=== PATIENT | male | born 1940 | race Caucasian/White ===

== ENCOUNTER 2020-01-27 12:47 | Inpatient (IN) | payer MEDICARE, OTHER ==
--- NOTE | 2020-01-27 13:43 | EDM.PDOC ---
ED HPI GENERAL MEDICAL PROBLEM - General Chief Complaint: Respiratory Problem Stated Complaint: SOB Time Seen by Provider: 01/27/20 13:26 Source of Information: Reports: Patient History Limitations: Reports: No Limitations - History of Present Illness INITIAL COMMENTS - FREE TEXT/NARRATIVE: Patient presents with hypoxemia that started this morning at home. He lives with his daughter and has a home oxygen saturation monitor. He also has cough and fever that started 5-6 days ago. Two days ago he was tested for Covid which resulted positive yesterday. He has felt just a little dyspnea but not much. Denies chest pain. Highest temp was 100. Significant cough but not much production. Denies any asthma, COPD or other chronic lung problems. He has a pacemaker that was placed in February 2019. - Related Data Allergies Allergy/AdvReac Type Severity Reaction Status Date / Time adhesive tape Allergy Hives Verified 01/27/20 14:58 No Known Drug Allergies Allergy Cannot Verified 01/27/20 13:35 Remember Home Meds: Home Meds Allopurinol [Zyloprim] 200 mg PO QAM 01/27/20 [History] Cholecalciferol (Vitamin D3) [Vitamin D3] 400 unit PO QAM 01/27/20 [History] Fish Oil/[place]-3 Fatty Acids [Fish Oil 1,000 MG] 1 each PO QAM 01/27/20 [History] Methylsulfonylmethane [MSM] 500 mg PO QAM 01/27/20 [History] Metoprolol Tartrate [Lopressor] 50 mg PO QAM 01/27/20 [History] Multivitamins,Ther w-Minerals [Multivitamins with Minerals HP] 1 each PO QAM 01/27/20 [History] Naproxen Sod/Diphenhydramine [Aleve Pm Caplet] 1 tab PO BEDTIME 01/27/20 [History] Naproxen Sodium [Aleve] 220 mg PO QAM 01/27/20 [History] Niacin 500 mg PO BEDTIME 01/27/20 [History] Omeprazole 20 mg PO QAM 01/27/20 [History] Potassium Gluconate [Potassium] 99 mg PO QAM 01/27/20 [History] amLODIPine [Norvasc] 5 mg PO QAM 01/27/20 [History] lisinopriL [Lisinopril] 10 mg PO QAM 12/04/20 [History] ED ROS GENERAL - Review of Systems Review Of Systems: See Below Constitutional: Reports: Fever. Denies: Chills, Malaise, Weakness HEENT: Denies: Ear Pain, Throat Pain, Vision Change Respiratory: Reports: Shortness of Breath (mild), Cough Cardiovascular: Denies: Chest Pain, Lightheadedness, Syncope GI/Abdominal: Denies: Abdominal Pain, Diarrhea, Vomiting : Reports: No Symptoms Musculoskeletal: Denies: Neck Pain, Shoulder Pain, Arm Pain, Back Pain, Hand Pain Skin: Denies: Cyanosis, Jaundice, Mottled, Pallor, Diaphoresis Neurological: Denies: Confusion, Dizziness, Seizure, Syncope, Trouble Speaking, Difficulty Walking Psychiatric: Denies: Agitation, Anxiety, Confusion ED EXAM, GENERAL - Physical Exam Exam: See Below Exam Limited By: No Limitations General Appearance: Alert, WD/WN, No Apparent Distress Eye Exam: Bilateral Eye: EOMI, Normal Inspection, PERRL Ears: Normal External Exam, Hearing Grossly Normal Nose: Normal Inspection, No Blood Throat/Mouth: Normal Inspection, Normal Lips, Normal Voice, No Airway Compromise Head: Atraumatic, Normocephalic Neck: Normal Inspection, Full Range of Motion Respiratory/Chest: No Respiratory Distress, No Accessory Muscle Use, Crackles (significant in bilat bases and upper right lung). No: Rhonchi, Wheezing, Stridor, Prolonged Expiration Cardiovascular: Normal Peripheral Pulses, Regular Rate, Rhythm, No Edema, No Gallop, No JVD, No Murmur GI/Abdominal: Normal Bowel Sounds, Soft, Non-Tender, No Organomegaly, No Distention, No Abnormal Bruit Back Exam: Normal Inspection, Full Range of Motion. No: CVA Tenderness (L), CVA Tenderness (R) Extremities: Normal Inspection, Normal Range of Motion Neurological: Alert, Oriented, Normal Cognition, No Motor/Sensory Deficits Psychiatric: Normal Affect, Normal Mood Skin Exam: Warm, Dry, Intact, Normal Color, No Rash Course - Vital Signs Last Recorded V/S: Last Vital Signs Temp 99.7 F 01/27/20 15:44 Pulse 76 01/27/20 15:44 Resp 28 H 01/27/20 15:44 BP 157/81 H 01/27/20 15:44 Pulse Ox 90 L 01/27/20 15:44 - Orders/Labs/Meds Orders: Active Orders 24 hr Category Date Time Status Patient Status [ADT] Routine ADT 01/27/20 15:29 Ordered EKG Documentation Completion [RC] ASDIRECTED Care 01/27/20 14:08 Active CULTURE BLOOD [BC] Stat Lab 01/27/20 13:20 Received CULTURE BLOOD [BC] Stat Lab 01/27/20 14:25 Received Blood Culture x2 Reflex Set [OM.PC] Stat Oth 01/27/20 13:48 Ordered EKG 12 Lead [EK] Routine Ther 01/27/20 13:00 Ordered Labs: Laboratory Tests 01/27/20 01/27/20 01/27/20 Range/Units 13:20 13:20 13:20 WBC 6.02 (5.00-10.00) 10^3/uL RBC 4.34 L (4.50-6.00) 10^6/uL Hgb 13.2 (13.0-17.0) g/dL Hct 37.0 L (40.0-52.0) % MCV 85.3 (82.0-92.0) fL MCH 30.4 (27.0-31.0) pg MCHC 35.7 (32.0-36.0) g/dL RDW 13.2 (11.5-14.5) % Plt Count 152 (150-400) 10^3/uL MPV 10.6 H (7.4-10.4) fL Immature Gran % (Auto) 0.2 (0.0-5.0) % Neut % (Auto) 82.8 H (50.0-70.0) % Lymph % (Auto) 11.0 L (20.0-40.0) % [place] % (Auto) 5.3 (2.0-8.0) % Eos % (Auto) 0.5 L (1.0-3.0) % Baso % (Auto) 0.2 (0.0-1.0) % Neut # (Auto) 4.99 (2.50-7.00) 10^3/uL Lymph # (Auto) 0.66 L (1.00-4.00) 10^3/uL [place] # (Auto) 0.32 (0.10-0.80) 10^3/uL Eos # (Auto) 0.03 L (0.10-0.30) 10^3/uL Baso # (Auto) 0.01 (0.00-0.10) 10^3/uL Immature Gran # (Auto) 0.01 (0.00-0.50) 10^3/uL Sodium 130 L (136-145) mmol/L Potassium 3.7 (3.3-5.3) mmol/L Chloride 97 L (98-115) mmol/L Carbon Dioxide 23.3 (21.0-32.0) mmol/L Anion Gap 13.4 (5-15) mmol/L BUN 22 (6-25) mg/dL Creatinine 1.03 (0.51-1.17) mg/dL Est Cr Clr Drug Dosing 54.42 mL/min Estimated GFR (MDRD) > 60 mL/min Glucose 108 H (75 - 99) mg/dL Lactic Acid 1.6 (0.4-2.0) mmol/L Calcium 8.3 L (8.7-10.3) mg/dL Total Bilirubin 0.8 (0.2-1.0) mg/dL AST 43 H (15-37) U/L ALT 22 (12-78) U/L Alkaline Phosphatase 67 (46-116) IU/L Total Protein 7.0 (6.4-8.2) g/dL Albumin 3.14 (3.00-4.80) g/dL Meds: Medications Discontinued Medications Generic Name Dose Route Start Last Admin Trade Name Freq PRN Reason Stop Dose Admin Dexamethasone 6 mg 01/27/20 14:30 01/27/20 15:25 Decadron IVPUSH 01/27/20 14:31 6 mg ONETIME ONE Administration - Re-Assessments/Exams Free Text/Narrative Re-Assessment/Exam: 01/27/20 15:34 CXR shows interstitial pneumonia per report. I didn't see infiltrates or ground-glass appearance. WBC is 6 with lymphocytes 11%. Patient is running 93% on 2 liters and dropped to 83% when oxygen was off and he went to the restroom. I discussed findings and recommended admitting for treatment either here or in [place]. Patient and daughter would ideally like him to go back home with home oxygen set up. I discussed this with Dr. Novak and Debra Richardson called and learned we could get it set up for him today but in the mean time patient and family had decided to stay in hospital on oxygen at least until tomorrow to see how he does and decide on home treatment tomorrow. I discussed with daughter that Remdesivir would only be used if he stays in the hospital for 5 days as it is a 5-day IV course. She will visit with her sister, a nurse in [place], so that when Dr. Novak discusses treatment with them they will have had time to consider it a bit. Patient is doing well on oxygen and is discharged from ER to hospital in stable condition. Departure - Departure Time of Disposition: 15:43 Disposition: Admitted As Inpatient 64 Condition: Good Clinical Impression: Hypoxemia requiring supplemental oxygen, Interstitial pneumonia, COVID-19 - Discharge Information Referrals: Nubia Thomas MD [Primary Care Provider] - Forms: ED Department Discharge Sepsis Event Note (ED) - Evaluation Sepsis Screening Result: Possible Sepsis Risk - Focused Exam Vital Signs: Vital Signs Temp Pulse Resp BP Pulse Ox Pulse Ox 01/27/20 15:44 99.7 F 76 28 H 157/81 H 90 L 01/27/20 15:05 99.2 F 83 28 H 140/64 94 L 01/27/20 14:56 84 28 H 143/63 H 93 L 01/27/20 14:15 99.5 F 81 29 H 135/58 L 92 L 01/27/20 14:00 81 29 H 136/66 93 L 01/27/20 13:45 80 22 H 135/69 93 L 01/27/20 13:30 78 20 127/61 93 L 01/27/20 13:10 92 L 01/27/20 12:55 98.0 F 88 28 H 144/67 H 84 L - My Orders Last 24 Hours: My Active Orders 01/27/20 13:00 EKG 12 Lead [EK] Routine 01/27/20 13:20 CULTURE BLOOD [BC] Stat 01/27/20 13:48 Blood Culture x2 Reflex Set [OM.PC] Stat 01/27/20 14:08 EKG Documentation Completion [RC] ASDIRECTED 01/27/20 14:25 CULTURE BLOOD [BC] Stat 01/27/20 15:29 Patient Status [ADT] Routine - Assessment/Plan Last 24 Hours: My Active Orders 01/27/20 13:00 EKG 12 Lead [EK] Routine 01/27/20 13:20 CULTURE BLOOD [BC] Stat 01/27/20 13:48 Blood Culture x2 Reflex Set [OM.PC] Stat 01/27/20 14:08 EKG Documentation Completion [RC] ASDIRECTED 01/27/20 14:25 CULTURE BLOOD [BC] Stat 01/27/20 15:29 Patient Status [ADT] Routine
[2020-01-27 14:12] LABS: ANION GAP 13.4 mmol/L (5-15); CHLORIDE,CL 97 mmol/L (98-115); SODIUM,NA 130 mmol/L (136-145)
[2020-01-27] MEDS ORDERED: Dexamethasone 4 MG/ML SDV IVPUSH ONE (14:30)
--- NOTE | 2020-01-27 14:32 | CR ---
[id number] RAD/RAD Chest PA And Lateral EXAM: RAD Chest PA And Lateral CLINICAL DATA: HYPOXIA VIRAL INFECTION COMPARISON: NO PREVIOUS SIMILAR EXAM IS AVAILABLE. FINDINGS: An abnormal interstitial pattern is seen The cardiac silhouette is enlarged The pacemaker is identified IMPRESSION: INTERSTITIAL PNEUMONIA True Bolaños MD 01/27/20 [id number] Thank you for allowing us to participate in the care of your patient.
[2020-01-27] MEDS ORDERED: Acetaminophen 325 MG Tab PO PRN (17:24)
[2020-01-27] MEDS ORDERED: REMDESIVIR 200 MG in Sodium Chloride 0.9% 250 ML IV ONE (17:24)
[2020-01-27] MEDS ORDERED: Sodium Chloride 0.9% 100 ML IV SCH (18:00)
[2020-01-27] MEDS ORDERED: Sodium Chloride 0.9% 1,000 ML IV SCH (19:15)
[2020-01-27 19:43] LABS: PTT,PARTIAL THROMBOPLSTIN TIME 33.2 SEC (22.8-31.4)
[2020-01-27] MEDS: Ascorbic Acid 500 MG Tab PO SCH (20:06)
[2020-01-28] MEDS ORDERED: cefTRIAXone 2 GM Vial IVPUSH ONE (02:30)
[2020-01-28] MEDS ORDERED: Azithromycin 500 MG in Sodium Chloride 0.9% 250 ML IV ONE (02:30)
[2020-01-28 03:00] LABS: PCO2 ARTERIAL,POC 30 mmHg (35-48)
[2020-01-28] MEDS ORDERED: Menthol 7.6 MG Sugar Free Lozenge PO PRN (06:21)
[2020-01-28] MEDS: Ascorbic Acid 500 MG Tab PO SCH (08:43)
[2020-01-28] MEDS ORDERED: Allopurinol 100 MG Tab PO SCH (09:00)
[2020-01-28] MEDS ORDERED: Omeprazole 20 MG Cap.CR PO SCH (09:00)
[2020-01-28] MEDS ORDERED: Zinc (Zinc Gluconate) 50 MG Tab PO SCH (09:00)
[2020-01-28] MEDS ORDERED: METHYLSULFONYLMETHANE PO SCH (09:00)
[2020-01-28] MEDS ORDERED: Enoxaparin 40 MG/0.4 ML Syringe SUBCUT SCH (09:00)
[2020-01-28] MEDS ORDERED: Cholecalciferol (Vitamin D3) 25 MCG Tab PO SCH (09:00)
[2020-01-28] MEDS ORDERED: Metoprolol Tartrate 50 MG Tab PO SCH (09:00)
[2020-01-28] MEDS ORDERED: Dexamethasone 4 MG Tab PO SCH (09:00)
[2020-01-28] MEDS ORDERED: amLODIPine 5 MG Tab PO SCH (09:00)
[2020-01-28 09:20] LABS: CHLORIDE,CL 101 mmol/L (98-115); SODIUM,NA 133 mmol/L (136-145)
--- NOTE | 2020-01-28 10:04 | PCM.DCSUM1 ---
Discharge Summary - Hospital Course Free Text/Narrative:: Date of admission: 01/27/20 Date of discharge: 01/28/20 Admission diagnoses: Acute hypoxic respiratory failure COVID pneumonia Hyponatremia Discharge diagnoses: Acute hypoxic respiratory failure, worsening COVID pneumonia Hyponatremia Chronic diagnoses: SSS s/p pacemaker, 2019 HTN GERD Gout Consultations: None Procedures: None Hospital course: 79yoM with a history notable for pacemaker status for SSS in 2019 and HTN who presented to the [facility] ED on the afternoon of 01/27/20 for noted hypoxia on home oximeter. He began having URI symptoms and generalized malaise on 01/17/20. He had COVID testing on 01/25/20, which resulted as positive on 01/26/20. He lives independently, but his daughter who lives nearby had him come stay with him starting on 01/25/20 in order to keep a closer eye on his status. She had an oximeter noting oxygen saturations in the 80s, prompting bringing him to the ED. Evaluation was notable for oxygen requirement of 2lpm, but overall comfortable work of breathing. Labs and CXR overall fitting with COVID pneumonia and mild dehydration. Initially, the patient and family wanted to be discharged to home with oxygen, but after further discussions agreed to admission locally for monitoring and therapeutics. He was given dexamethasone 6mg and remdisivir 200mg. NS was started at 125cc/hr. 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 Coverage for superimposed bacterial community acquired pneumonia was initiated with ceftriaxone 2gm and azithromycin 500mg. IVF were discontinued as well. ABG 7.4/30/60-20. Despite interventions, his oxygen requirement continued to increase to 9lpm via HFNC. After detailed discussion with the patient as well as with two of his daughters, Mariana and Lily, over the phone, call for transfer was placed to [facility], where he was accepted. Transfer was initiated by ground EMS. Discharge and follow-up recommendations: Discharge to [facility] Special Care Unit - Discharge Data Discharge Date: 01/28/20 Discharge Disposition: DC/Tfer to Acute Hospital 02 Condition: Critical - Referral to Home Health Primary Care Physician: Sravanthi Damon NP - Discharge Plan Home Medications: Home Meds Allopurinol [Zyloprim] 200 mg PO QAM 01/27/20 [History] Cholecalciferol (Vitamin D3) [Vitamin D3] 400 unit PO QAM 01/27/20 [History] Fish Oil/[place]-3 Fatty Acids [Fish Oil 1,000 MG] 1 each PO QAM 01/27/20 [History] Methylsulfonylmethane [MSM] 500 mg PO QAM 01/27/20 [History] Metoprolol Tartrate [Lopressor] 50 mg PO QAM 01/27/20 [History] Multivitamins,Ther w-Minerals [Multivitamins with Minerals HP] 1 each PO QAM 01/27/20 [History] Naproxen Sod/Diphenhydramine [Aleve Pm Caplet] 1 tab PO BEDTIME 01/27/20 [History] Naproxen Sodium [Aleve] 220 mg PO QAM 01/27/20 [History] Niacin 500 mg PO BEDTIME 01/27/20 [History] Omeprazole 20 mg PO QAM 01/27/20 [History] Potassium Gluconate [Potassium] 99 mg PO QAM 01/27/20 [History] amLODIPine [Norvasc] 5 mg PO QAM 01/27/20 [History] lisinopriL [Lisinopril] 10 mg PO QAM 01/27/20 [History] - Discharge Summary/Plan Comment DC Time >30 min.: Yes - General Info Date of Service: 01/28/20 Subjective Update: Mr. Steel states that he overall feels okay and that he has a little more energy than yesterday despite not sleeping well last night. Endorses ongoing shortness of breath and dry cough, but without worsening since admission. No new complaints this morning. Eating well. Voiding and stooling without difficulty. - Patient Data Vitals - Most Recent: Last Vital Signs Temp 36.2 C 01/28/20 05:50 Pulse 92 01/28/20 08:43 Resp 30 H 01/28/20 05:50 BP 112/61 01/28/20 08:44 Pulse Ox 88 L 01/28/20 10:00 Weight - Most Recent: 91.399 kg I&O - Last 24 hours: Intake & Output 01/27/20 01/28/20 01/28/20 22:59 06:59 14:59 Intake Total 435 775 Output Total 300 Balance 435 475 Lab Results - Last 24 hrs: Laboratory Results - last 24 hr 01/27/20 01/27/20 01/27/20 Range/Units 13:20 13:20 13:20 WBC 6.02 (5.00-10.00) 10^3/uL RBC 4.34 L (4.50-6.00) 10^6/uL Hgb 13.2 (13.0-17.0) g/dL Hct 37.0 L (40.0-52.0) % MCV 85.3 (82.0-92.0) fL MCH 30.4 (27.0-31.0) pg MCHC 35.7 (32.0-36.0) g/dL RDW 13.2 (11.5-14.5) % Plt Count 152 (150-400) 10^3/uL MPV 10.6 H (7.4-10.4) fL Immature Gran % (Auto) 0.2 (0.0-5.0) % Neut % (Auto) 82.8 H (50.0-70.0) % Lymph % (Auto) 11.0 L (20.0-40.0) % [place] % (Auto) 5.3 (2.0-8.0) % Eos % (Auto) 0.5 L (1.0-3.0) % Baso % (Auto) 0.2 (0.0-1.0) % Neut # (Auto) 4.99 (2.50-7.00) 10^3/uL Lymph # (Auto) 0.66 L (1.00-4.00) 10^3/uL [place] # (Auto) 0.32 (0.10-0.80) 10^3/uL Eos # (Auto) 0.03 L (0.10-0.30) 10^3/uL Baso # (Auto) 0.01 (0.00-0.10) 10^3/uL Immature Gran # (Auto) 0.01 (0.00-0.50) 10^3/uL PT (9.2-11.2) SEC INR (0.9-1.1) APTT (22.8-31.4) SEC D-Dimer, Quantitative (<400) ng/mL POC ABG pH (7.35-7.45) pH POC ABG pCO2 (35-48) mmHg POC ABG pO2 (83-108) mmHg POC ABG HCO3 (21-28) mmol/L ABG O2 Sat (Calculated) (94-98) % POC ABG Base Excess (-2-3) mmol/L Sodium 130 L (136-145) mmol/L Potassium 3.7 (3.3-5.3) mmol/L Chloride 97 L (98-115) mmol/L Carbon Dioxide 23.3 (21.0-32.0) mmol/L Anion Gap 13.4 (5-15) mmol/L BUN 22 (6-25) mg/dL Creatinine 1.03 (0.51-1.17) mg/dL Est Cr Clr Drug Dosing 54.42 mL/min Estimated GFR (MDRD) > 60 mL/min Glucose 108 H (75 - 99) mg/dL Lactic Acid 1.6 (0.4-2.0) mmol/L Calcium 8.3 L (8.7-10.3) mg/dL Magnesium (1.8-2.4) mg/dL Total Bilirubin 0.8 (0.2-1.0) mg/dL Direct Bilirubin (0.0-0.2) mg/dL AST 43 H (15-37) U/L ALT 22 (12-78) U/L Alkaline Phosphatase 67 (46-116) IU/L Creatine Kinase (26-276) U/L Troponin I (0.00-0.070) ng/mL C-Reactive Protein (0.0-0.9) mg/dL B-Natriuretic Peptide (0-100) pg/mL Total Protein 7.0 (6.4-8.2) g/dL Albumin 3.14 (3.00-4.80) g/dL 01/27/20 01/27/20 01/28/20 Range/Units 13:20 13:20 02:40 WBC (5.00-10.00) 10^3/uL RBC (4.50-6.00) 10^6/uL Hgb (13.0-17.0) g/dL Hct (40.0-52.0) % MCV (82.0-92.0) fL MCH (27.0-31.0) pg MCHC (32.0-36.0) g/dL RDW (11.5-14.5) % Plt Count (150-400) 10^3/uL MPV (7.4-10.4) fL Immature Gran % (Auto) (0.0-5.0) % Neut % (Auto) (50.0-70.0) % Lymph % (Auto) (20.0-40.0) % [place] % (Auto) (2.0-8.0) % Eos % (Auto) (1.0-3.0) % Baso % (Auto) (0.0-1.0) % Neut # (Auto) (2.50-7.00) 10^3/uL Lymph # (Auto) (1.00-4.00) 10^3/uL [place] # (Auto) (0.10-0.80) 10^3/uL Eos # (Auto) (0.10-0.30) 10^3/uL Baso # (Auto) (0.00-0.10) 10^3/uL Immature Gran # (Auto) (0.00-0.50) 10^3/uL PT 9.8 (9.2-11.2) SEC INR 1.0 (0.9-1.1) APTT 33.2 H (22.8-31.4) SEC D-Dimer, Quantitative 805 H (<400) ng/mL POC ABG pH 7.4 (7.35-7.45) pH POC ABG pCO2 30 L (35-48) mmHg POC ABG pO2 60 L (83-108) mmHg POC ABG HCO3 20 L (21-28) mmol/L ABG O2 Sat (Calculated) 91.8 L (94-98) % POC ABG Base Excess -4 L (-2-3) mmol/L Sodium (136-145) mmol/L Potassium (3.3-5.3) mmol/L Chloride (98-115) mmol/L Carbon Dioxide (21.0-32.0) mmol/L Anion Gap (5-15) mmol/L BUN (6-25) mg/dL Creatinine (0.51-1.17) mg/dL Est Cr Clr Drug Dosing mL/min Estimated GFR (MDRD) mL/min Glucose (75 - 99) mg/dL Lactic Acid (0.4-2.0) mmol/L Calcium (8.7-10.3) mg/dL Magnesium 1.7 L (1.8-2.4) mg/dL Total Bilirubin (0.2-1.0) mg/dL Direct Bilirubin 0.3 H (0.0-0.2) mg/dL AST (15-37) U/L ALT (12-78) U/L Alkaline Phosphatase (46-116) IU/L Creatine Kinase 108 (26-276) U/L Troponin I < 0.02 (0.00-0.070) ng/mL C-Reactive Protein 25.7 H (0.0-0.9) mg/dL B-Natriuretic Peptide 62 (0-100) pg/mL Total Protein (6.4-8.2) g/dL Albumin (3.00-4.80) g/dL 01/28/20 01/28/20 Range/Units 08:25 08:25 WBC 4.11 L (5.00-10.00) 10^3/uL RBC 4.51 (4.50-6.00) 10^6/uL Hgb 13.6 (13.0-17.0) g/dL Hct 38.0 L (40.0-52.0) % MCV 84.3 (82.0-92.0) fL MCH 30.2 (27.0-31.0) pg MCHC 35.8 (32.0-36.0) g/dL RDW 13.0 (11.5-14.5) % Plt Count 185 (150-400) 10^3/uL MPV 10.3 (7.4-10.4) fL Immature Gran % (Auto) 0.0 (0.0-5.0) % Neut % (Auto) 84.2 H (50.0-70.0) % Lymph % (Auto) 9.5 L (20.0-40.0) % [place] % (Auto) 6.1 (2.0-8.0) % Eos % (Auto) 0.0 L (1.0-3.0) % Baso % (Auto) 0.2 (0.0-1.0) % Neut # (Auto) 3.46 (2.50-7.00) 10^3/uL Lymph # (Auto) 0.39 L (1.00-4.00) 10^3/uL [place] # (Auto) 0.25 (0.10-0.80) 10^3/uL Eos # (Auto) 0.00 L (0.10-0.30) 10^3/uL Baso # (Auto) 0.01 (0.00-0.10) 10^3/uL Immature Gran # (Auto) 0.00 (0.00-0.50) 10^3/uL PT (9.2-11.2) SEC INR (0.9-1.1) APTT (22.8-31.4) SEC D-Dimer, Quantitative (<400) ng/mL POC ABG pH (7.35-7.45) pH POC ABG pCO2 (35-48) mmHg POC ABG pO2 (83-108) mmHg POC ABG HCO3 (21-28) mmol/L ABG O2 Sat (Calculated) (94-98) % POC ABG Base Excess (-2-3) mmol/L Sodium 133 L (136-145) mmol/L Potassium 3.7 (3.3-5.3) mmol/L Chloride 101 (98-115) mmol/L Carbon Dioxide 19.7 L (21.0-32.0) mmol/L Anion Gap 16.0 H (5-15) mmol/L BUN 19 (6-25) mg/dL Creatinine 0.74 (0.51-1.17) mg/dL Est Cr Clr Drug Dosing 75.74 mL/min Estimated GFR (MDRD) > 60 mL/min Glucose 129 H (75 - 99) mg/dL Lactic Acid (0.4-2.0) mmol/L Calcium 8.6 L (8.7-10.3) mg/dL Magnesium 1.9 (1.8-2.4) mg/dL Total Bilirubin 0.6 (0.2-1.0) mg/dL Direct Bilirubin (0.0-0.2) mg/dL AST 39 H (15-37) U/L ALT 21 (12-78) U/L Alkaline Phosphatase 67 (46-116) IU/L Creatine Kinase (26-276) U/L Troponin I (0.00-0.070) ng/mL C-Reactive Protein 28.0 H (0.0-0.9) mg/dL B-Natriuretic Peptide (0-100) pg/mL Total Protein 7.2 (6.4-8.2) g/dL Albumin 2.95 L (3.00-4.80) g/dL Med Orders - Current: Current Medications Acetaminophen (Tylenol) 650 mg PO Q4H PRN PRN Reason: fever or pain Allopurinol (Zyloprim) 200 mg PO [facility] Last Admin: 01/28/20 08:44 Dose: 200 mg Documented by: Amlodipine Besylate (Norvasc) 5 mg PO [facility] Last Admin: 01/28/20 08:44 Dose: 5 mg Documented by: Ascorbic Acid (Vitamin C) 1,000 mg PO BID [facility] Last Admin: 01/28/20 08:43 Dose: 1,000 mg Documented by: Ceftriaxone Sodium (Rocephin) 2 gm IVPUSH Q24H [facility]1983 Stop: 02/02/20 21:01 Cholecalciferol (Vitamin D3) 25 mcg PO DAILY [facility] Last Admin: 01/28/20 08:44 Dose: 25 mcg Documented by: Dexamethasone (Dexamethasone) 6 mg PO DAILY [facility] Last Admin: 01/28/20 08:42 Dose: 6 mg Documented by: Enoxaparin Sodium (Lovenox) 40 mg SUBCUT Q24H [facility] Last Admin: 01/28/20 08:43 Dose: 40 mg Documented by: Remdesivir 100 mg/ Sodium (Chloride) 250 mls @ 250 mls/hr IV Q24H [facility] Sodium Chloride (Normal Saline) 100 mls @ 125 mls/hr IV ASDIRECTED [facility] Last Admin: 01/27/20 18:35 Dose: 125 mls/hr Documented by: Azithromycin 500 mg/ Sodium (Chloride) 250 mls @ 250 mls/hr IV Q24H [facility]1983 Stop: 02/02/20 21:59 Menthol ([place] Sugar Free) 1 ortiz PO ASDIRECTED PRN PRN Reason: Sore Throat Metoprolol Tartrate (Lopressor) 50 mg PO [facility] Last Admin: 01/28/20 08:43 Dose: 50 mg Documented by: Non-Formulary Medication (Methylsulfonylmethane [Msm]) 500 mg PO [facility] Omeprazole (Omeprazole) 20 mg PO [facility] Last Admin: 01/28/20 08:43 Dose: 20 mg Documented by: Zinc Gluconate (Zinc) 50 mg PO DAILY [facility] Last Admin: 01/28/20 08:44 Dose: 50 mg Documented by: Discontinued Medications Ceftriaxone Sodium (Rocephin) 2 gm IVPUSH ONETIME ONE Stop: 01/28/20 02:31 Last Admin: 01/28/20 02:42 Dose: 2 gm Documented by: Dexamethasone (Decadron) 6 mg IVPUSH ONETIME ONE Stop: 01/27/20 14:31 Last Admin: 01/27/20 15:25 Dose: 6 mg Documented by: Remdesivir 200 mg/ Sodium (Chloride) 250 mls @ 250 mls/hr IV ONETIME ONE Stop: 01/27/20 17:25 Last Admin: 01/27/20 18:57 Dose: 250 mls/hr Documented by: Sodium Chloride (Normal Saline) 1,000 mls @ 125 mls/hr IV ASDIRECTED [facility] Last Admin: 01/27/20 20:09 Dose: 125 mls/hr Documented by: Azithromycin 500 mg/ Sodium (Chloride) 250 mls @ 250 mls/hr IV ONETIME ONE Stop: 01/28/20 03:29 Last Admin: 01/28/20 02:46 Dose: 250 mls/hr Documented by: - Exam Physical Findings Comments:: GENERAL: Elderly white male sitting on hospital bed eating breakfast in no acute distress. HEENT: Normocephalic, atraumatic. Right conjunctival injection without discharge. Normal left eye. HFNC in place. Mucous membranes moist, posterior pharynx unremarkable. NECK: Supple, no masses. CV: Regular rate and rhythm, no murmurs, rubs, or gallops. 2+ radial pulses. PULMONARY: Mild tachypnea, but otherwise without increased work of breathing. Diffuse mild rhonchi without wheezing. ABDOMEN: Positive bowel sounds, soft, nontender, nondistended. EXTREMITIES: No edema, cyanosis, or clubbing. MUSCULOSKELETAL: Moves all extremities well. NEUROLOGICAL: No obvious deficits. DERMATOLOGIC: No rashes or suspicious lesions in exposed areas. PSYCHIATRIC: Alert, interactive, appropriate affect.
--- NOTE | 2020-01-28 10:04 | PCM.HP.2 ---
H&P History of Present Illness - General Date of Service: 01/27/20 Admit Problem/Dx: Admission Diagnosis/Problem Admission Diagnosis/Problem Viral pneumonia - Related Data Allergies/Adverse Reactions: Allergies Allergy/AdvReac Type Severity Reaction Status Date / Time adhesive tape Allergy Hives Verified 01/27/20 14:58 No Known Drug Allergies Allergy Cannot Verified 01/27/20 13:35 Remember Home Medications: Home Meds Allopurinol [Zyloprim] 200 mg PO QAM 01/27/20 [History] Cholecalciferol (Vitamin D3) [Vitamin D3] 400 unit PO QAM 01/27/20 [History] Fish Oil/Clio-3 Fatty Acids [Fish Oil 1,000 MG] 1 each PO QAM 01/27/20 [History] Methylsulfonylmethane [MSM] 500 mg PO QAM 01/27/20 [History] Metoprolol Tartrate [Lopressor] 50 mg PO QAM 01/27/20 [History] Multivitamins,Ther w-Minerals [Multivitamins with Minerals HP] 1 each PO QAM 01/27/20 [History] Naproxen Sod/Diphenhydramine [Aleve Pm Caplet] 1 tab PO BEDTIME 01/27/20 [History] Naproxen Sodium [Aleve] 220 mg PO QAM 01/27/20 [History] Niacin 500 mg PO BEDTIME 01/27/20 [History] Omeprazole 20 mg PO QAM 01/27/20 [History] Potassium Gluconate [Potassium] 99 mg PO QAM 01/27/20 [History] amLODIPine [Norvasc] 5 mg PO QAM 01/27/20 [History] lisinopriL [Lisinopril] 10 mg PO QAM 01/27/20 [History] Past Medical History HEENT History: Reports: Allergic Rhinitis, Hard of Hearing, Impaired Vision Other HEENT History: HEARING AIDS. GLASSES. FULL SET UPPERS AND LOWERS Cardiovascular History: Reports: High Cholesterol, Hypertension, Pacemaker, SOB on Exertion Other Cardiovascular History: first degree heart block. grade II dyastolic dysfunction. othostatic lightheadedness. Gastrointestinal History: Reports: Colon Polyp, GERD Genitourinary History: Reports: None Musculoskeletal History: Reports: Gout Endocrine/Metabolic History: Reports: Obesity/BMI 30+, Vitamin D Deficiency - Infectious Disease History Infectious Disease History: Reports: Chicken Pox, Measles, Mumps, Pertussis (Whooping Cough), Rubella - Past Surgical History HEENT Surgical History: Reports: Tonsillectomy Cardiovascular Surgical History: Reports: Pacer GI Surgical History: Reports: Appendectomy, Cholecystectomy, Colostomy Endocrine Surgical History: Reports: None Musculoskeletal Surgical History: Reports: None Other Musculoskeletal Surgeries/Procedures:: INJECTIONS IN BILATERAL SHOULDERS Social & Family History - Family History Family Medical History: No Pertinent Family History - Tobacco Use Tobacco Use Status *Q: Never Tobacco User - Caffeine Use Caffeine Use: Reports: Soda Other Caffeine Use: COKE - Alcohol Use Days Per Week of Alcohol Use: 2 Number of Drinks Per Day: 2 Total Drinks Per Week: 4 - Recreational Drug Use Recreational Drug Use: No Exam - Vital Signs Vital Signs: Last Vital Signs Temp 36.2 C 01/28/20 05:50 Pulse 92 01/28/20 08:43 Resp 30 H 01/28/20 05:50 BP 112/61 01/28/20 08:44 Pulse Ox 88 L 01/28/20 10:00 Weight: 91.399 kg - Patient Data Lab Results Last 24 hrs: Laboratory Results - last 24 hr 01/27/20 01/27/20 01/27/20 Range/Units 13:20 13:20 13:20 WBC 6.02 (5.00-10.00) 10^3/uL RBC 4.34 L (4.50-6.00) 10^6/uL Hgb 13.2 (13.0-17.0) g/dL Hct 37.0 L (40.0-52.0) % MCV 85.3 (82.0-92.0) fL MCH 30.4 (27.0-31.0) pg MCHC 35.7 (32.0-36.0) g/dL RDW 13.2 (11.5-14.5) % Plt Count 152 (150-400) 10^3/uL MPV 10.6 H (7.4-10.4) fL Immature Gran % (Auto) 0.2 (0.0-5.0) % Neut % (Auto) 82.8 H (50.0-70.0) % Lymph % (Auto) 11.0 L (20.0-40.0) % [place] % (Auto) 5.3 (2.0-8.0) % Eos % (Auto) 0.5 L (1.0-3.0) % Baso % (Auto) 0.2 (0.0-1.0) % Neut # (Auto) 4.99 (2.50-7.00) 10^3/uL Lymph # (Auto) 0.66 L (1.00-4.00) 10^3/uL [place] # (Auto) 0.32 (0.10-0.80) 10^3/uL Eos # (Auto) 0.03 L (0.10-0.30) 10^3/uL Baso # (Auto) 0.01 (0.00-0.10) 10^3/uL Immature Gran # (Auto) 0.01 (0.00-0.50) 10^3/uL PT (9.2-11.2) SEC INR (0.9-1.1) APTT (22.8-31.4) SEC D-Dimer, Quantitative (<400) ng/mL POC ABG pH (7.35-7.45) pH POC ABG pCO2 (35-48) mmHg POC ABG pO2 (83-108) mmHg POC ABG HCO3 (21-28) mmol/L ABG O2 Sat (Calculated) (94-98) % POC ABG Base Excess (-2-3) mmol/L Sodium 130 L (136-145) mmol/L Potassium 3.7 (3.3-5.3) mmol/L Chloride 97 L (98-115) mmol/L Carbon Dioxide 23.3 (21.0-32.0) mmol/L Anion Gap 13.4 (5-15) mmol/L BUN 22 (6-25) mg/dL Creatinine 1.03 (0.51-1.17) mg/dL Est Cr Clr Drug Dosing 54.42 mL/min Estimated GFR (MDRD) > 60 mL/min Glucose 108 H (75 - 99) mg/dL Lactic Acid 1.6 (0.4-2.0) mmol/L Calcium 8.3 L (8.7-10.3) mg/dL Magnesium (1.8-2.4) mg/dL Total Bilirubin 0.8 (0.2-1.0) mg/dL Direct Bilirubin (0.0-0.2) mg/dL AST 43 H (15-37) U/L ALT 22 (12-78) U/L Alkaline Phosphatase 67 (46-116) IU/L Creatine Kinase (26-276) U/L Troponin I (0.00-0.070) ng/mL C-Reactive Protein (0.0-0.9) mg/dL B-Natriuretic Peptide (0-100) pg/mL Total Protein 7.0 (6.4-8.2) g/dL Albumin 3.14 (3.00-4.80) g/dL 01/27/20 01/27/20 01/28/20 Range/Units 13:20 13:20 02:40 WBC (5.00-10.00) 10^3/uL RBC (4.50-6.00) 10^6/uL Hgb (13.0-17.0) g/dL Hct (40.0-52.0) % MCV (82.0-92.0) fL MCH (27.0-31.0) pg MCHC (32.0-36.0) g/dL RDW (11.5-14.5) % Plt Count (150-400) 10^3/uL MPV (7.4-10.4) fL Immature Gran % (Auto) (0.0-5.0) % Neut % (Auto) (50.0-70.0) % Lymph % (Auto) (20.0-40.0) % [place] % (Auto) (2.0-8.0) % Eos % (Auto) (1.0-3.0) % Baso % (Auto) (0.0-1.0) % Neut # (Auto) (2.50-7.00) 10^3/uL Lymph # (Auto) (1.00-4.00) 10^3/uL [place] # (Auto) (0.10-0.80) 10^3/uL Eos # (Auto) (0.10-0.30) 10^3/uL Baso # (Auto) (0.00-0.10) 10^3/uL Immature Gran # (Auto) (0.00-0.50) 10^3/uL PT 9.8 (9.2-11.2) SEC INR 1.0 (0.9-1.1) APTT 33.2 H (22.8-31.4) SEC D-Dimer, Quantitative 805 H (<400) ng/mL POC ABG pH 7.4 (7.35-7.45) pH POC ABG pCO2 30 L (35-48) mmHg POC ABG pO2 60 L (83-108) mmHg POC ABG HCO3 20 L (21-28) mmol/L ABG O2 Sat (Calculated) 91.8 L (94-98) % POC ABG Base Excess -4 L (-2-3) mmol/L Sodium (136-145) mmol/L Potassium (3.3-5.3) mmol/L Chloride (98-115) mmol/L Carbon Dioxide (21.0-32.0) mmol/L Anion Gap (5-15) mmol/L BUN (6-25) mg/dL Creatinine (0.51-1.17) mg/dL Est Cr Clr Drug Dosing mL/min Estimated GFR (MDRD) mL/min Glucose (75 - 99) mg/dL Lactic Acid (0.4-2.0) mmol/L Calcium (8.7-10.3) mg/dL Magnesium 1.7 L (1.8-2.4) mg/dL Total Bilirubin (0.2-1.0) mg/dL Direct Bilirubin 0.3 H (0.0-0.2) mg/dL AST (15-37) U/L ALT (12-78) U/L Alkaline Phosphatase (46-116) IU/L Creatine Kinase 108 (26-276) U/L Troponin I < 0.02 (0.00-0.070) ng/mL C-Reactive Protein 25.7 H (0.0-0.9) mg/dL B-Natriuretic Peptide 62 (0-100) pg/mL Total Protein (6.4-8.2) g/dL Albumin (3.00-4.80) g/dL 01/28/20 01/28/20 Range/Units 08:25 08:25 WBC 4.11 L (5.00-10.00) 10^3/uL RBC 4.51 (4.50-6.00) 10^6/uL Hgb 13.6 (13.0-17.0) g/dL Hct 38.0 L (40.0-52.0) % MCV 84.3 (82.0-92.0) fL MCH 30.2 (27.0-31.0) pg MCHC 35.8 (32.0-36.0) g/dL RDW 13.0 (11.5-14.5) % Plt Count 185 (150-400) 10^3/uL MPV 10.3 (7.4-10.4) fL Immature Gran % (Auto) 0.0 (0.0-5.0) % Neut % (Auto) 84.2 H (50.0-70.0) % Lymph % (Auto) 9.5 L (20.0-40.0) % [place] % (Auto) 6.1 (2.0-8.0) % Eos % (Auto) 0.0 L (1.0-3.0) % Baso % (Auto) 0.2 (0.0-1.0) % Neut # (Auto) 3.46 (2.50-7.00) 10^3/uL Lymph # (Auto) 0.39 L (1.00-4.00) 10^3/uL [place] # (Auto) 0.25 (0.10-0.80) 10^3/uL Eos # (Auto) 0.00 L (0.10-0.30) 10^3/uL Baso # (Auto) 0.01 (0.00-0.10) 10^3/uL Immature Gran # (Auto) 0.00 (0.00-0.50) 10^3/uL PT (9.2-11.2) SEC INR (0.9-1.1) APTT (22.8-31.4) SEC D-Dimer, Quantitative (<400) ng/mL POC ABG pH (7.35-7.45) pH POC ABG pCO2 (35-48) mmHg POC ABG pO2 (83-108) mmHg POC ABG HCO3 (21-28) mmol/L ABG O2 Sat (Calculated) (94-98) % POC ABG Base Excess (-2-3) mmol/L Sodium 133 L (136-145) mmol/L Potassium 3.7 (3.3-5.3) mmol/L Chloride 101 (98-115) mmol/L Carbon Dioxide 19.7 L (21.0-32.0) mmol/L Anion Gap 16.0 H (5-15) mmol/L BUN 19 (6-25) mg/dL Creatinine 0.74 (0.51-1.17) mg/dL Est Cr Clr Drug Dosing 75.74 mL/min Estimated GFR (MDRD) > 60 mL/min Glucose 129 H (75 - 99) mg/dL Lactic Acid (0.4-2.0) mmol/L Calcium 8.6 L (8.7-10.3) mg/dL Magnesium 1.9 (1.8-2.4) mg/dL Total Bilirubin 0.6 (0.2-1.0) mg/dL Direct Bilirubin (0.0-0.2) mg/dL AST 39 H (15-37) U/L ALT 21 (12-78) U/L Alkaline Phosphatase 67 (46-116) IU/L Creatine Kinase (26-276) U/L Troponin I (0.00-0.070) ng/mL C-Reactive Protein 28.0 H (0.0-0.9) mg/dL B-Natriuretic Peptide (0-100) pg/mL Total Protein 7.2 (6.4-8.2) g/dL Albumin 2.95 L (3.00-4.80) g/dL Result Diagrams: 01/28/20 08:25 01/28/20 08:25 Sepsis Event Note - Evaluation Sepsis Screening Result: No Definite Risk - Focused Exam Vital Signs: Vital Signs Temp Pulse Pulse Resp BP BP Pulse Ox 01/28/20 10:00 01/28/20 08:44 112/61 01/28/20 08:43 92 112/61 01/28/20 07:41 01/28/20 07:35 01/28/20 05:50 36.2 C 84 30 H 142/76 H 90 L 01/28/20 02:47 36.4 C 91 28 H 122/66 91 L 01/28/20 01:30 90 L 01/28/20 01:00 36.6 C 80 34 H 135/74 90 L 01/27/20 23:30 90 L 01/27/20 23:00 36.6 C 80 24 H 115/46 L 90 L Pulse Ox Pulse Ox 01/28/20 10:00 88 L 01/28/20 08:44 01/28/20 08:43 01/28/20 07:41 90 L 01/28/20 07:35 87 L 01/28/20 05:50 01/28/20 02:47 01/28/20 01:30 01/28/20 01:00 01/27/20 23:30 91 L 01/27/20 23:00 Orders Last 24hrs: Active Orders 24 hr Category Date Time Status Patient Status [ADT] Routine ADT 01/27/20 15:29 Active Antiembolic Devices [RC] 0900,2100 Care 01/27/20 19:01 Active Height and Weight [RC] 0700 Care 01/27/20 19:00 Active Intake and Output [RC] 1400,2200,0600 Care 01/27/20 19:00 Active Oxygen Therapy [RC] CONTINUOUS Care 01/27/20 19:00 Active Up With Assistance [RC] ASDIRECTED Care 01/27/20 19:00 Active VTE/DVT Education [RC] PER UNIT ROUTINE Care 01/27/20 19:01 Active Vital Signs [RC] 0300,0700,1100,1500,1900,2300 Care 01/27/20 19:00 Active Regular Diet [DIET] Diet 01/27/20 Dinner Active C-REACTIVE PROTEIN [CHEM] AM Lab 01/29/20 05:11 Ordered C-REACTIVE PROTEIN [CHEM] AM Lab 01/30/20 05:11 Ordered C-REACTIVE PROTEIN [CHEM] AM Lab 01/31/20 05:11 Ordered CBC WITH AUTO DIFF [HEME] AM Lab 01/29/20 05:11 Ordered CBC WITH AUTO DIFF [HEME] AM Lab 01/30/20 05:11 Ordered CBC WITH AUTO DIFF [HEME] AM Lab 01/31/20 05:11 Ordered COMPREHENSIVE METABOLIC PN,CMP [CHEM] AM Lab 01/29/20 05:11 Ordered COMPREHENSIVE METABOLIC PN,CMP [CHEM] AM Lab 01/30/20 05:11 Ordered COMPREHENSIVE METABOLIC PN,CMP [CHEM] AM Lab 01/31/20 05:11 Ordered CULTURE BLOOD [BC] Stat Lab 01/27/20 13:20 Received CULTURE BLOOD [BC] Stat Lab 01/27/20 14:25 Received MG [MAGNESIUM] [CHEM] AM Lab 01/29/20 05:11 Ordered MG [MAGNESIUM] [CHEM] AM Lab 01/30/20 05:11 Ordered MG [MAGNESIUM] [CHEM] AM Lab 01/31/20 05:11 Ordered PROCALCITONIN [REF] Routine Lab 01/27/20 13:20 Received Acetaminophen [TylenoL] Med 01/27/20 17:24 Active 650 mg PO Q4H PRN Ascorbic Acid [Vitamin C] Med 01/27/20 21:00 Active 1,000 mg PO BID Azithromycin [Zithromax] 500 mg Med 01/28/20 21:00 Active Sodium Chloride 0.9% [Normal Saline] 250 ml IV Q24H Cholecalciferol (Vitamin D3) [Vitamin D3] Med 01/28/20 09:00 Active 25 mcg PO DAILY Enoxaparin [Lovenox] Med 01/28/20 09:00 Active 40 mg SUBCUT Q24H Menthol [[place] Sugar Free] Med 01/28/20 06:21 Active 1 ortiz PO ASDIRECTED PRN Methylsulfonylmethane [MSM] Med 01/28/20 09:00 Pending 500 mg PO QAM Metoprolol Tartrate [Lopressor] Med 01/28/20 09:00 Active 50 mg PO QAM Omeprazole Med 01/28/20 09:00 Active 20 mg PO QAM Remdesivir 100 mg Med 01/28/20 17:30 Active Sodium Chloride 0.9% [Normal Saline] 250 ml IV Q24H Sodium Chloride 0.9% [Normal Saline] 100 ml Med 01/27/20 18:00 Active IV ASDIRECTED Zinc Gluconate [Zinc] Med 01/28/20 09:00 Active 50 mg PO DAILY allopurinoL [Zyloprim] Med 01/28/20 09:00 Active 200 mg PO QAM amLODIPine [Norvasc] Med 01/28/20 09:00 Active 5 mg PO QAM cefTRIAXone [Rocephin] Med 01/28/20 21:00 Active 2 gm IVPUSH Q24H dexAMETHasone Med 01/28/20 09:00 Active 6 mg PO DAILY Blood Culture x2 Reflex Set [OM.PC] Stat Oth 01/27/20 13:48 Ordered DVT/VTE Prophylaxis Reflex [OM.PC] Routine Oth 01/27/20 19:00 Ordered Isolation [COMM] Stat Oth 01/27/20 17:24 Ordered Resuscitation Status Routine Resus Stat 01/27/20 19:00 Ordered EKG 12 Lead [EK] Routine Ther 01/27/20 13:00 Ordered Medication Orders Acetaminophen (Tylenol) 650 mg PO Q4H PRN PRN Reason: fever or pain [facility]) [facility] [place] Admin: 01/28/20 08:44 Dose: 200 mg Documented by: JAMAAL Amlodipine Besylate (Norvasc) 5 mg PO [facility] Last Admin: 01/28/20 08:44 Dose: 5 mg Documented by: JAMAAL Ascorbic Acid (Vitamin C) 1,000 mg PO BID [facility] Last Admin: 01/28/20 08:43 Dose: 1,000 mg Documented by: Admin: 01/27/20 20:06 Dose: 1,000 mg Documented by: GEMMA Ceftriaxone Sodium (Rocephin) 2 gm IVPUSH Q24H [facility] Stop: 02/02/20 21:01 Cholecalciferol (Vitamin D3) 25 mcg PO DAILY [facility] Last Admin: 01/28/20 08:44 Dose: 25 mcg Documented by: JAMAAL Dexamethasone (Dexamethasone) 6 mg PO DAILY [facility] Last Admin: 01/28/20 08:42 Dose: 6 mg Documented by: JAMAAL Enoxaparin Sodium (Lovenox) 40 mg SUBCUT Q24H [facility] Last Admin: 01/28/20 08:43 Dose: 40 mg Documented by: JAMAAL Remdesivir 100 mg/ Sodium (Chloride) 250 mls @ 250 mls/hr IV Q24H [facility] Sodium Chloride (Normal Saline) 100 mls @ 125 mls/hr IV ASDIRECTED [facility] Last Admin: 01/27/20 18:35 Dose: 125 mls/hr Documented by: MARTIN Azithromycin 500 mg/ Sodium (Chloride) 250 mls @ 250 mls/hr IV Q24H [facility] Stop: 02/02/20 21:59 Menthol ([place] Sugar Free) 1 ortiz PO ASDIRECTED PRN PRN Reason: Sore Throat Metoprolol Tartrate (Lopressor) 50 mg PO [facility] Last Admin: 01/28/20 08:43 Dose: 50 mg Documented by: JAMAAL Non-Formulary Medication (Methylsulfonylmethane [Msm]) 500 mg PO [facility] Omeprazole (Omeprazole) 20 mg PO QAM [facility] Last Admin: 01/28/20 08:43 Dose: 20 mg Documented by: JAMAAL Zinc Gluconate (Zinc) 50 mg PO DAILY [facility] Last Admin: 01/28/20 08:44 Dose: 50 mg Documented by: JAMAAL
[2020-01-28] MEDS ORDERED: REMDESIVIR 100 MG in Sodium Chloride 0.9% 250 ML IV SCH (17:30)
[2020-01-28] MEDS ORDERED: cefTRIAXone 2 GM Vial IVPUSH SCH (21:00)
[2020-01-28] MEDS ORDERED: Azithromycin 500 MG in Sodium Chloride 0.9% 250 ML IV SCH (21:00)
== END 2020-01-28 10:28 | DRG 177 ==
LOC: KA.ED 12:47 → KA.MS 15:29
PROVIDERS: ADMIT Family Medicine; ATTEND Family Medicine
PROC: XW033E5 Introduction of Remdesivir Anti-infective into Peripheral Vein, Percutaneous Approach, New Technology Group 5 (ICD-10-PCS; principal; 2020-01-27)
PROC: 5A0945A Assistance with Respiratory Ventilation, 24-96 Consecutive Hours, High Flow/Velocity Cannula (ICD-10-PCS; 2020-01-27)
PROC: 8E0ZXY6 Isolation (ICD-10-PCS; 2020-01-27)
DX: U07.1 COVID-19 (principal); J12.89 Other viral pneumonia; J96.01 Acute respiratory failure with hypoxia; E87.1 Hypo-osmolality and hyponatremia; I49.5 Sick sinus syndrome; I10 Essential (primary) hypertension; K21.9 Gastro-esophageal reflux disease without esophagitis; M10.9 Gout, unspecified; H91.90 Unspecified hearing loss, unspecified ear; H54.7 Unspecified visual loss; J30.9 Allergic rhinitis, unspecified; E78.00 Pure hypercholesterolemia, unspecified; I44.0 Atrioventricular block, first degree; Z86.010 Personal history of colon polyps; J84.9 Interstitial pulmonary disease, unspecified; R09.02 Hypoxemia; Z91.048 Other nonmedicinal substance allergy status; Z97.4 Presence of external hearing-aid; Z90.89 Acquired absence of other organs; Z90.49 Acquired absence of other specified parts of digestive tract; Z79.899 Other long term (current) drug therapy; Z95.0 Presence of cardiac pacemaker
CPT/HCPCS: 36415; 36600; 71046; 80053; 82248; 82550; 82803; 83605; 83735; 83880; 84145; 84484; 85025; 85379; 85610; 85730; 86140; 87040; 87077; 93005; 96374; 99284; 99285-25; A9270-GY; J0456; J0696; J1100; J1650; J7030; J7050; J8540

== ENCOUNTER 2022-03-27 11:05 | Emergency (ER) | payer MEDICARE, OTHER ==
[2022-03-27] MEDS ORDERED: Sodium Chloride 0.9% 10 ML Syringe FLUSH PRN (11:17)
[2022-03-27 11:47] LABS: ANION GAP 21.8 mmol/L (5-15); CHLORIDE,CL 98 mmol/L (98-107); SODIUM,NA 133 mmol/L (136-145)
[2022-03-27 11:48] LABS: ESTIMATED GFR 34 mL/min (>=60)
[2022-03-27] MEDS: Sodium Chloride 0.9% 1,000 ML IV ONE ×2 (11:59→14:44)
[2022-03-27] MEDS: Ondansetron 4 MG/2 ML SDV IVPUSH ONE (12:00)
[2022-03-27 12:15] LABS: RESPIRATORY SYNCYTIAL VIR NAA NEGATIVE (NEGATIVE)
[2022-03-27 12:18] LABS: CORONAVIRUS COVID-19 NAA NEGATIVE (NEGATIVE)
[2022-03-27] MEDS: Levofloxacin/Dextrose 5%-Water 750 MG in Premix Bag 1 BAG IV ONE (12:24)
[2022-03-27 15:29] VITALS: BP 103/51; PULSE 79
[2022-03-27] MEDS: Sodium Chloride 0.9% 100 ML IV SCH (19:09)
[2022-03-27] MEDS: Iopamidol 755 Mg/ML 100 ML Bottle IV ONE (19:09)
== END 2022-03-27 16:15 ==
LOC: KA.ED 11:05 → MERGE 11:05 → KA.ED 16:15
DX: A41.9 Sepsis, unspecified organism (principal); I95.9 Hypotension, unspecified; K85.90 Acute pancreatitis without necrosis or infection, unspecified; K83.1 Obstruction of bile duct; R09.02 Hypoxemia; R06.02 Shortness of breath; I10 Essential (primary) hypertension; K21.9 Gastro-esophageal reflux disease without esophagitis; E66.9 Obesity, unspecified; Z68.34 Body mass index [BMI] 34.0-34.9, adult; Z87.891 Personal history of nicotine dependence; Z91.048 Other nonmedicinal substance allergy status; Z79.899 Other long term (current) drug therapy; Z20.822 Contact with and (suspected) exposure to COVID-19
CPT/HCPCS: 0241U; 36415; 51702; 71045; 71275; 74177; 80053; 81001; 83605; 83690; 83880; 84484; 85025; 85379; 85730; 86140; 87040; 87077; 87186; 93005; 93010; 96361; 96365; 96366; 96375; 99284; 99285-25; J1956; J2405; J7030; Q9967

== ENCOUNTER 2023-01-27 07:07 | Emergency (ER) | payer MEDICARE, OTHER ==
[2023-01-27 07:46] LABS: BASOPHILS ABSOLUTE AUTO 0.06 10^3/uL (0.00-0.10); BASOPHILS PERCENT AUTO 0.7 % (0.0-1.0); EOSINOPHILS PERCENT AUTO 3.6 % (1.0-3.0); HEMATOCRIT 38.3 % (40.0-52.0); HEMOGLOBIN 13.1 g/dL (13.0-17.0); IMMATURE GRAN ABSOLUTE AUTO 0.02 10^3/uL (0.00-0.50); IMMATURE GRAN PERCENT AUTO 0.2 % (0.0-5.0); LYMPHOCYTES ABSOLUTE AUTO 1.49 10^3/uL (1.00-4.00); MEAN CORPUSCULAR HEMOGLOBIN 30.7 pg (27.0-31.0); MEAN CORPUSCULAR HGB CONC 34.2 g/dL (32.0-36.0); MEAN CORPUSCULAR VOLUME 89.7 fL (82.0-92.0); MEAN PLATELET VOLUME 10.3 fL (7.4-10.4); MONOCYTES ABSOLUTE AUTO 0.57 10^3/uL (0.10-0.80); MONOCYTES PERCENT AUTO 6.9 % (2.0-8.0); NEUTROPHILS ABSOLUTE AUTO 5.84 10^3/uL (2.50-7.00); NEUTROPHILS PERCENT AUTO 70.6 % (50.0-70.0); PLATELET COUNT,PLT 195 10^3/uL (150-400); RED BLOOD CELL COUNT 4.27 10^6/uL (4.50-6.00); RED CELL DISTRIBUTION WIDTH 13.8 % (11.5-14.5); WHITE BLOOD CELL COUNT,WBC 8.28 10^3/uL (5.00-10.00)
[2023-01-27] MEDS ORDERED: Meclizine 25 MG Tab PO ONE (07:51)
[2023-01-27 08:01] LABS: ANION GAP 13.9 mmol/L (5-15); CALCIUM 8.4 mg/dL (8.7-10.3); CARBON DIOXIDE,CO2 24.6 mmol/L (21.0-32.0); CREATININE 0.95 mg/dL (0.51-1.17); EST CRCL DRUG DOSING (CG) 52.23 mL/min; POTASSIUM,K 3.5 mmol/L (3.5-5.1)
== END 2023-01-27 08:45 | disposition home or self-care (01) ==
LOC: KA.ED 07:07
DX: H81.10 Benign paroxysmal vertigo, unspecified ear (principal); I10 Essential (primary) hypertension; E78.00 Pure hypercholesterolemia, unspecified; Z95.0 Presence of cardiac pacemaker; K21.9 Gastro-esophageal reflux disease without esophagitis; E66.9 Obesity, unspecified; Z86.16 Personal history of COVID-19; Z90.49 Acquired absence of other specified parts of digestive tract; Z79.899 Other long term (current) drug therapy; Z91.048 Other nonmedicinal substance allergy status; Z68.33 Body mass index [BMI] 33.0-33.9, adult
CPT/HCPCS: 80048; 85025; 93010; 99284; A9270